=== PATIENT | female | born 1975 | race Caucasian/White ===

== ENCOUNTER 2024-01-30 12:31 | Emergency (ER) | payer MEDICAID ==
[~2024-01-30] VITALS: Ht 160 cm; Wt 68.0 kg
[2024-01-30 12:43] VITALS: BP_SYST 148; PULSE 78; RESP 16; TEMP 96.9; O2SAT 97
[2024-01-30 13:42] LABS: BILIRUBIN,URINE NEGATIVE (NEGATIVE); BLOOD, URINE NEGATIVE (NEGATIVE); CLARITY/URINE CLEAR (CLEAR); COLOR,URINE YELLOW (YELLOW); GLUCOSE,URINE TRACE (NEGATIVE); KETONES,URINE NEGATIVE (NEGATIVE); LEUKOCYTE ESTERASE ,URINE NEGATIVE (NEGATIVE); NITRITE, URINE NEGATIVE (NEGATIVE); PH,URINE 8.5 (5.0-8.0); PROTEIN URINE NEGATIVE (NEGATIVE)
[2024-01-30 13:48] LABS: BASOPHILS # (AUTO) 0.1 K/uL (0.0-0.2); BASOPHILS % (AUTO) 0.6 % (0.0-2.0); EOSINOPHILS # (AUTO) 0.1 K/uL (0.0-0.4); HEMATOCRIT 42.5 % (36-48); HEMOGLOBIN 14.3 g/dL (12.0-16.0); LYMPHOCYTES # (AUTO) 2.1 K/uL (1.0-5.5); LYMPHOCYTES % (AUTO) 24.6 % (20.5-51.5); MEAN CORPUSCULAR HEMOGLOBIN 30 pg (27-31); MEAN CORPUSCULAR HGB CONC 34 % (32-36); MEAN CORPUSCULAR VOLUME 89 fL (79.0-98.0); MONOCYTES # (AUTO) 0.2 K/uL (0.0-1.0); MONOCYTES % (AUTO) 2.8 % (1.7-9.3); NEUTROPHILS # (AUTO) 5.9 K/uL (1.8-7.7); PLATELET COUNT (AUTO) 315 K/uL (130-430); RED BLOOD CELL COUNT(AUTO) 4.75 MIL/uL (4.2-6.2); RED CELL DISTRIBUTION WIDTH 14.1 % (9.0-15.0); WHITE BLOOD COUNT (AUTO) 8.3 K/uL (4.8-10.8)
[2024-01-30] MEDS: NACL 0.9% 1,000 ML IV ONE (13:54)
[2024-01-30] MEDS: ONDANSETRON HCL 4 MG/2 ML VIAL IVP ONE ×2 (14:02→14:47)
[2024-01-30] MEDS: fentaNYL CITRATE/PF 100 MCG/2 ML AMP IVP ONE (14:03)
[2024-01-30 14:05] LABS: ALBUMIN 3.7 g/dL (3.4-4.8); BILIRUBIN,DIRECT 0.1 mg/dL (0.0-0.3); CALCIUM 9.8 mg/dL (8.4-11.0); CREATININE 0.89 mg/dL (0.55-1.30); POTASSIUM 3.4 mmol/L (3.5-5.1); TOTAL BILIRUBIN 0.4 mg/dL (0.0-1.0); TOTAL PROTEIN, SERUM 8.5 g/dL (6.4-8.3)
[2024-01-30] MEDS: PANTOPRAZOLE SODIUM 40 MG/VIAL (PROTONIX) IVP ONE (15:02)
[2024-01-30 15:05] LABS: BARBITURATE, URINE NEGATIVE (NEG <=200); BENZODIAZEPINE, URINE NEGATIVE (NEG <=150); CANNABINOID, URINE POSITIVE (NEG <=50); COCAINE, URINE NEGATIVE (NEG <=150); METHAMPHETAMINES SCREEN,URINE NEGATIVE (NEG <=500); OPIATE, URINE POSITIVE (NEG <=100); PHENCYCLIDINE SCREEN,URINE NEGATIVE (NEG <=25); URINE AMPHETAMINE NEGATIVE (NEG <=500); URINE METHADONE NEGATIVE (NEG <=200)
[2024-01-30 15:06] LABS: UR TRICYCLIC ANTIDEPRESSANTS POSITIVE (NEG <=300); URINE OXYCODONE SCREEN NEGATIVE (NEG <=100)
[2024-01-30] MEDS ORDERED: PRO40 PO (15:50)
[2024-01-30] MEDS ORDERED: ONDA-8 TL (15:50)
[2024-01-30 16:03] VITALS: BP_SYST 130; PULSE 78; RESP 16; TEMP 96.9; O2SAT 97
== END 2024-01-30 16:06 | disposition home or self-care (01) ==
LOC: SED 12:31
DX: R11.10 Vomiting, unspecified (principal); R10.84 Generalized abdominal pain; R35.0 Frequency of micturition; E11.9 Type 2 diabetes mellitus without complications; I10 Essential (primary) hypertension; Z88.5 Allergy status to narcotic agent; Z88.6 Allergy status to analgesic agent; Z88.8 Allergy status to other drugs, medicaments and biological substances; Z85.858 Personal history of malignant neoplasm of other endocrine glands; Z79.899 Other long term (current) drug therapy
CPT/HCPCS: 99285; 74176; 96374; 96375; 96361; 80307; 80076; 80048; 83690; 85025; 36415; 96376; 81003; 81001; J2405; C9113; J3010; J7030

== ENCOUNTER 2024-03-02 12:38 | Emergency (ER) | payer MEDICAID ==
[~2024-03-02] VITALS: Ht 160 cm; Wt 89.8 kg
[~2024-03-02 12:38] MED LIST: ONDA-8 TL; PRO40 PO
[2024-03-02 12:47] VITALS: BP_SYST 115; PULSE 82; RESP 18; TEMP 97.6; O2SAT 96
[2024-03-02 13:46] LABS: BASOPHILS % (AUTO) 0.6 % (0.0-2.0); EOSINOPHILS # (AUTO) 0.3 K/uL (0.0-0.4); EOSINOPHILS % (AUTO) 4.9 % (0.0-4.0); HEMATOCRIT 40.9 % (36-48); HEMOGLOBIN 14.1 g/dL (12.0-16.0); LYMPHOCYTES # (AUTO) 1.7 K/uL (1.0-5.5); LYMPHOCYTES % (AUTO) 27.9 % (20.5-51.5); MEAN CORPUSCULAR HEMOGLOBIN 31 pg (27-31); MEAN CORPUSCULAR HGB CONC 34 % (32-36); MEAN CORPUSCULAR VOLUME 91 fL (79.0-98.0); MONOCYTES # (AUTO) 0.2 K/uL (0.0-1.0); MONOCYTES % (AUTO) 3.3 % (1.7-9.3); NEUTROPHILS # (AUTO) 3.9 K/uL (1.8-7.7); NEUTROPHILS % (AUTO) 63.3 % (40.0-70.0); PLATELET COUNT (AUTO) 260 K/uL (130-430); RED CELL DISTRIBUTION WIDTH 14.5 % (9.0-15.0); WHITE BLOOD COUNT (AUTO) 6.1 K/uL (4.8-10.8)
[2024-03-02 13:49] LABS: BILIRUBIN,URINE NEGATIVE (NEGATIVE); BLOOD, URINE NEGATIVE (NEGATIVE); CLARITY/URINE CLEAR (CLEAR); COLOR,URINE YELLOW (YELLOW); GLUCOSE,URINE NEGATIVE (NEGATIVE); KETONES,URINE NEGATIVE (NEGATIVE); LEUKOCYTE ESTERASE ,URINE NEGATIVE (NEGATIVE); NITRITE, URINE NEGATIVE (NEGATIVE); PROTEIN URINE NEGATIVE (NEGATIVE)
[2024-03-02 13:52] LABS: HCG,QUAL RESULT NEGATIVE (NEGATIVE)
[2024-03-02 13:53] LABS: ALBUMIN 3.5 g/dL (3.4-4.8); BILIRUBIN,DIRECT 0.1 mg/dL (0.0-0.3); CALCIUM 9.1 mg/dL (8.4-11.0); CREATININE 0.89 mg/dL (0.55-1.30); POTASSIUM 3.6 mmol/L (3.5-5.1); TOTAL BILIRUBIN 0.4 mg/dL (0.0-1.0); TOTAL PROTEIN, SERUM 7.5 g/dL (6.4-8.3)
[2024-03-02] MEDS: NACL 0.9% 1,000 ML IV ONE (14:18)
[2024-03-02] MEDS: ONDANSETRON HCL 4 MG/2 ML VIAL IVP ONE ×2 (14:55→16:14)
[2024-03-02] MEDS: DEXTROSE 50% JECT 50 ML DISP.SYRIN IVP ONE (14:55)
[2024-03-02] MEDS: MORPHINE 4 MG INJ. 4 MG/ML VIAL IVP ONE (14:55)
[2024-03-02] MEDS: ZOSTRIX 0.025% CR TP ONE (16:16)
[2024-03-02] MEDS ORDERED: DICY-14 PO (16:44)
[2024-03-02 17:05] VITALS: BP_SYST 112; PULSE 61; RESP 14; TEMP 97.6; O2SAT 97
== END 2024-03-02 17:04 | disposition home or self-care (01) ==
LOC: SED 12:38
DX: R11.2 Nausea with vomiting, unspecified (principal); R10.32 Left lower quadrant pain; R10.9 Unspecified abdominal pain; J45.909 Unspecified asthma, uncomplicated; E11.9 Type 2 diabetes mellitus without complications; I10 Essential (primary) hypertension; Z85.89 Personal history of malignant neoplasm of other organs and systems; Z88.5 Allergy status to narcotic agent; Z88.6 Allergy status to analgesic agent; Z88.8 Allergy status to other drugs, medicaments and biological substances; Z79.899 Other long term (current) drug therapy
CPT/HCPCS: 99285; 74176; 96374; 96361; 96375; 80076; 80048; 81001; 84703; 83690; 85025; 84484; 36415; 93005; 96376; 81003; J2405; J2270; J7030

== ENCOUNTER 2024-03-14 12:39 | Emergency (ER) | payer MEDICAID ==
[~2024-03-14] VITALS: Ht 160 cm; Wt 98.9 kg
[~2024-03-14 12:39] MED LIST changes: +DICY-14 PO
[2024-03-14 12:46] VITALS: BP_SYST 11; PULSE 101; RESP 18; TEMP 97.2; O2SAT 98
[2024-03-14 13:56] LABS: BILIRUBIN,URINE NEGATIVE (NEGATIVE); BLOOD, URINE NEGATIVE (NEGATIVE); CLARITY/URINE CLEAR (CLEAR); COLOR,URINE YELLOW (YELLOW); GLUCOSE,URINE NEGATIVE (NEGATIVE); KETONES,URINE NEGATIVE (NEGATIVE); LEUKOCYTE ESTERASE ,URINE NEGATIVE (NEGATIVE); NITRITE, URINE NEGATIVE (NEGATIVE); PH,URINE 6.5 (5.0-8.0); PROTEIN URINE NEGATIVE (NEGATIVE); UROBILINOGEN,URINE 0.2 (0.2-1.0)
[2024-03-14 14:01] LABS: BASOPHILS % (AUTO) 0.7 % (0.0-2.0); EOSINOPHILS # (AUTO) 0.3 K/uL (0.0-0.4); EOSINOPHILS % (AUTO) 4.9 % (0.0-4.0); HEMATOCRIT 38.5 % (36-48); HEMOGLOBIN 13.4 g/dL (12.0-16.0); LYMPHOCYTES # (AUTO) 1.9 K/uL (1.0-5.5); LYMPHOCYTES % (AUTO) 35.9 % (20.5-51.5); MEAN CORPUSCULAR HEMOGLOBIN 32 pg (27-31); MEAN CORPUSCULAR HGB CONC 35 % (32-36); MEAN CORPUSCULAR VOLUME 91 fL (79.0-98.0); MONOCYTES # (AUTO) 0.3 K/uL (0.0-1.0); MONOCYTES % (AUTO) 4.8 % (1.7-9.3); NEUTROPHILS # (AUTO) 2.9 K/uL (1.8-7.7); NEUTROPHILS % (AUTO) 53.7 % (40.0-70.0); PLATELET COUNT (AUTO) 248 K/uL (130-430); RED BLOOD CELL COUNT(AUTO) 4.24 MIL/uL (4.2-6.2); RED CELL DISTRIBUTION WIDTH 13.9 % (9.0-15.0); WHITE BLOOD COUNT (AUTO) 5.4 K/uL (4.8-10.8)
[2024-03-14 14:15] LABS: PROTHROMBIN TIME 10.4 SECS (9.5-12.5)
[2024-03-14 14:32] LABS: SERUM HCG (QUALITATIVE) NEGATIVE (NEGATIVE)
[2024-03-14 14:34] LABS: ALBUMIN 3.5 g/dL (3.4-4.8); BILIRUBIN,DIRECT 0.1 mg/dL (0.0-0.3); CALCIUM 9.1 mg/dL (8.4-11.0); CREATININE 0.76 mg/dL (0.55-1.30); POTASSIUM 3.1 mmol/L (3.5-5.1); TOTAL BILIRUBIN 0.2 mg/dL (0.0-1.0); TOTAL PROTEIN, SERUM 7.4 g/dL (6.4-8.3)
== END 2024-03-14 12:52 | disposition home or self-care (01) ==
LOC: SED 12:39
DX: R10.9 Unspecified abdominal pain (principal); R11.2 Nausea with vomiting, unspecified; J45.909 Unspecified asthma, uncomplicated; E11.9 Type 2 diabetes mellitus without complications; I10 Essential (primary) hypertension; Z85.89 Personal history of malignant neoplasm of other organs and systems; Z88.5 Allergy status to narcotic agent; Z88.6 Allergy status to analgesic agent; Z79.899 Other long term (current) drug therapy
CPT/HCPCS: 36415; 74018; 80048; 80076; 81001; 81003; 81025; 82150; 82948; 83605; 83690; 84703; 85025; 85610; 85730; 93005; 99285

== ENCOUNTER 2024-05-22 13:30 | Emergency (ER) | payer MEDICAID ==
[~2024-05-22] VITALS: Ht 160 cm; Wt 98.9 kg
[2024-05-22 13:30] VITALS: BP_SYST 127; PULSE 89; RESP 18; TEMP 97.8; O2SAT 97
[2024-05-22] MEDS: ONDANSETRON 4 MG ODT TAB PO ONE (14:59)
[2024-05-22] MEDS ORDERED: D10W 250 ML IV SCH (16:00)
[2024-05-22 16:09] LABS: BASOPHILS # (AUTO) 0.1 K/uL (0.0-0.2); EOSINOPHILS # (AUTO) 0.3 K/uL (0.0-0.4); EOSINOPHILS % (AUTO) 4.5 % (0.0-4.0); HEMATOCRIT 38.1 % (36-48); HEMOGLOBIN 13.6 g/dL (12.0-16.0); LYMPHOCYTES # (AUTO) 1.9 K/uL (1.0-5.5); LYMPHOCYTES % (AUTO) 29.6 % (20.5-51.5); MEAN CORPUSCULAR HEMOGLOBIN 33 pg (27-31); MEAN CORPUSCULAR HGB CONC 36 % (32-36); MEAN CORPUSCULAR VOLUME 91 fL (79.0-98.0); MONOCYTES # (AUTO) 0.4 K/uL (0.0-1.0); MONOCYTES % (AUTO) 6.4 % (1.7-9.3); NEUTROPHILS # (AUTO) 3.8 K/uL (1.8-7.7); NEUTROPHILS % (AUTO) 58.5 % (40.0-70.0); PLATELET COUNT (AUTO) 277 K/uL (130-430); RED BLOOD CELL COUNT(AUTO) 4.18 MIL/uL (4.2-6.2); RED CELL DISTRIBUTION WIDTH 13.7 % (9.0-15.0); WHITE BLOOD COUNT (AUTO) 6.5 K/uL (4.8-10.8)
[2024-05-22] MEDS ORDERED: MORPHINE 4 MG INJ. 4 MG/ML VIAL IVP ONE (16:15)
[2024-05-22 16:41] LABS: ALBUMIN 3.6 g/dL (3.4-4.8); BILIRUBIN,DIRECT 0.1 mg/dL (0.0-0.3); CALCIUM 9.5 mg/dL (8.4-11.0); CREATININE 0.79 mg/dL (0.55-1.30); POTASSIUM 3.7 mmol/L (3.5-5.1); TOTAL BILIRUBIN 0.2 mg/dL (0.0-1.0); TOTAL PROTEIN, SERUM 7.6 g/dL (6.4-8.3)
[2024-05-22] MEDS ORDERED: ONDA-8 TL (17:58)
[2024-05-22] MEDS ORDERED: LOM2.5 PO (19:19)
[2024-05-22] MEDS ORDERED: METR-154 PO (19:19)
[2024-05-22 19:34] LABS: BILIRUBIN,URINE NEGATIVE (NEGATIVE); BLOOD, URINE NEGATIVE (NEGATIVE); CLARITY/URINE CLEAR (CLEAR); COLOR,URINE YELLOW (YELLOW); GLUCOSE,URINE NEGATIVE (NEGATIVE); KETONES,URINE NEGATIVE (NEGATIVE); LEUKOCYTE ESTERASE ,URINE NEGATIVE (NEGATIVE); NITRITE, URINE NEGATIVE (NEGATIVE); PROTEIN URINE NEGATIVE (NEGATIVE); UROBILINOGEN,URINE 0.2 (0.2-1.0)
[2024-05-22 20:32] LABS: BARBITURATE, URINE NEGATIVE (NEG <=200); CANNABINOID, URINE POSITIVE (NEG <=50); UR TRICYCLIC ANTIDEPRESSANTS POSITIVE (NEG <=300)
[2024-05-22 20:33] LABS: BENZODIAZEPINE, URINE NEGATIVE (NEG <=150); COCAINE, URINE NEGATIVE (NEG <=150); METHAMPHETAMINES SCREEN,URINE NEGATIVE (NEG <=500); OPIATE, URINE NEGATIVE (NEG <=100); PHENCYCLIDINE SCREEN,URINE NEGATIVE (NEG <=25); URINE AMPHETAMINE NEGATIVE (NEG <=500); URINE METHADONE NEGATIVE (NEG <=200); URINE OXYCODONE SCREEN NEGATIVE (NEG <=100)
== END 2024-05-22 19:28 | disposition home or self-care (01) ==
LOC: SED 13:30
DX: K52.9 Noninfective gastroenteritis and colitis, unspecified (principal); R10.84 Generalized abdominal pain; R11.2 Nausea with vomiting, unspecified; J45.909 Unspecified asthma, uncomplicated; E11.9 Type 2 diabetes mellitus without complications; I10 Essential (primary) hypertension; F12.90 Cannabis use, unspecified, uncomplicated; Z85.89 Personal history of malignant neoplasm of other organs and systems; Z85.818 Personal history of malignant neoplasm of other sites of lip, oral cavity, and pharynx; Z90.49 Acquired absence of other specified parts of digestive tract; Z88.5 Allergy status to narcotic agent; Z88.6 Allergy status to analgesic agent; Z88.8 Allergy status to other drugs, medicaments and biological substances; Z79.899 Other long term (current) drug therapy; Z79.2 Long term (current) use of antibiotics
CPT/HCPCS: 99284; 74176; 80307; 80076; 80048; 83690; 85025; 84484; 36415; 93005; 82948; 81003; 81001; G0482; Q0162; J2270